=== PATIENT | female | born 1945 | race Caucasian/White ===

== ENCOUNTER → 2017-04-28 | Outpatient (CLI) | payer MEDICARE ==
--- NOTE | 2017-04-28 16:04 | RAD ---
Indication hip pain. A single AP view of the pelvis was obtained as well as targeted AP and frog leg views of the right hip. There are degenerative changes involving both hips left somewhat greater than right. There is some deformity which may be degenerative and chronic or possibly posttraumatic at the level of the symphysis. An acute bony finding is not seen. There are some modest degenerative changes in the lower lumbar spine. IMPRESSION: Degenerative changes involving both hips. Acute bony finding is not seen
== END | disposition home or self-care (01) ==
LOC: DXRAD 15:35
PROVIDERS: ATTEND Specialist
DX: M16.0 Bilateral primary osteoarthritis of hip (principal)
CPT/HCPCS: 73502

== ENCOUNTER 2017-06-27 12:16 | Emergency (ER) | payer MEDICARE ==
[~2017-06-27] VITALS: Ht 167.6 cm; Wt 72.6 kg
[2017-06-27 13:01] VITALS: BP 101/56
--- NOTE | 2017-06-27 13:15 | RAD ---
Indication: Weakness for one day. Technique: Two-view chest radiograph was obtained. No comparison is available. Findings: The lungs are clear. The cardiopulmonary silhouette is within normal limits. There is a small to medium sized hiatal hernia. There is minimal atheromatous disease in the thoracic aorta. There is no pleural effusion. The bony structures are intact. IVC filter is noted. Impression: No acute thoracic findings.
[2017-06-27 13:16] LABS: BASO # 0.1 x10^3/uL (0.0-0.2); BASO % 1 % (0-3); EOS # 0.2 x10^3/uL (0.0-0.7); EOS % 2 % (0-3); HEMATOCRIT 42.2 % (36.0-47.0); HEMOGLOBIN 14.5 g/dL (12.0-15.5); LYMPH # 1.4 x10^3/uL (1.0-4.8); LYMPH % 13 % (24-48); MEAN CORPUSCULAR HEMOGLOBIN 32 pg (25-35); MEAN CORPUSCULAR HGB CONC 34 g/dL (31-37); MEAN CORPUSCULAR VOLUME 94 fL (79-100); MONO # 0.6 x10^3/uL (0.0-1.1); MONO % 6 % (0-9); NEUT # 8.1 x10^3uL (1.8-7.7); NEUT % 78 % (31-73); PLATELET COUNT 140 x10^3/uL (140-400); RED BLOOD COUNT 4.49 x10^6/uL (3.50-5.40); RED CELL DISTRIBUTION WIDTH 13.6 % (11.5-14.5); WHITE BLOOD COUNT 10.4 x10^3/uL (4.0-11.0)
[2017-06-27 13:41] LABS: ALBUMIN 3.8 g/dL (3.4-5.0); ALBUMIN/GLOBULIN RATIO 1.5 (1.0-1.7); ALK PHOS 72 U/L (46-116); ALT (SGPT) 11 U/L (14-59); ANION GAP 7 (6-14); AST (SGOT) 20 U/L (15-37); BLOOD UREA NITROGEN 22 mg/dL (7-20); BUN/CREATININE RATIO 22 (6-20); CALCIUM 9.1 mg/dL (8.5-10.1); CARBON DIOXIDE 28 mmol/L (21-32); CHLORIDE 105 mmol/L (98-107); CREATINE KINASE 37 U/L (26-192); GFR 54.3; GLUCOSE 143 mg/dL (70-99); MAGNESIUM 2.1 mg/dL (1.8-2.4); POTASSIUM 4.7 mmol/L (3.5-5.1); SODIUM 140 mmol/L (136-145); TOTAL BILIRUBIN 0.8 mg/dL (0.2-1.0); TOTAL PROTEIN 6.4 g/dL (6.4-8.2)
[2017-06-27 14:07] LABS: BILIRUBIN,URINE NEG (NEG); CLARITY,URINE HAZY; COLOR,URINE YELLOW; GLUCOSE,URINE NEG (NEG)
[2017-06-27 14:08] LABS: BACTERIA,URINE MANY /HPF (0-FEW); NITRITE,URINE POS (NEG); SQUAMOUS EPITHELIAL CELL,UR MOD /LPF; UROBILINOGEN,URINE 0.2 mg/dL (0.2 mg/dL)
[2017-06-27 14:09] LABS: HYALINE CASTS, URINE FEW /HPF
[2017-06-27] MEDS ORDERED: CIPR250T PO (15:05)
--- NOTE | 2017-06-27 15:05 | PHYS DOC ---
Past History Past Medical History: Asthma, CAD, Dementia, SC, Seizure, Other Past Surgical History: Hysterectomy, Tonsillectomy, Other Alcohol Use: None Drug Use: None Adult General Chief Complaint Chief Complaint: WEAKNESS/GENERALIZED HPI HPI Patient is a 71-year-old female brought to the ED by her daughter with the complaint of a week or near syncopal episode. Patient lives with her daughter. She has a history of Parkinson's, dementia, seizures, and 4 cardiac stents. This morning, the patient was standing up, her daughter was combing her hair. She seemed to get weak and started leaning, she "started to go down" but the daughter held her up a family member ran and got a chair. It just seemed like her legs were giving out. She said in the chair for about 10 minutes, couldn't get up, seemed like she didn't have any strength in her legs. It was bilateral. She had a "cold sweats" during this time. After the episode, she was able to use a walker to get to the car but she was unsteady on her feet, seemed like her legs were still weak. Patient does use a walker all the time due to Parkinson's disease and balance issues. Daughter wonders whether her Parkinson's disease is getting worse. Seems like she is having more trouble with her balance. However the daughter states that she is supposed to take medication for times a day and they usually are able to remember the morning and evening doses but they have trouble and often forgets the 2 doses in the middle of the day. Patient is not diabetic. PCP Dr. Monterroso Review of Systems Review of Systems Patient is not able to contribute to review of systems due to dementia. Allergies Allergies Allergies Coded Allergies Type Severity Reaction Last Updated Verified Iodinated Contrast- Oral and IV Dye Allergy Unknown 06/27/17 Yes Penicillins Allergy Unknown 06/27/17 Yes Sulfa (Sulfonamide Antibiotics) Allergy Unknown 06/27/17 Yes cephalexin Allergy Unknown 06/27/17 Yes erythromycin base Allergy Unknown 06/27/17 Yes Physical Exam Physical Exam Constitutional: Well developed, well nourished, no acute distress, non-toxic appearance. Alert, answers most questions "I don't know", appears to be at her baseline HENT: Normocephalic, atraumatic, bilateral external ears normal, nose normal. [ ] Eyes: conjunctiva normal, no discharge. [] Neck: Normal range of motion, no stridor. [] Cardiovascular:Heart rate regular rhythm, no murmur [] Lungs & Thorax: Bilateral breath sounds clear to auscultation [] Abdomen: Bowel sounds normal, soft, no tenderness, no masses, no pulsatile masses. [] Skin: Warm, dry, no erythema, no rash. [] Extremities: No tenderness, no cyanosis, no clubbing, ROM intact, no edema. [] Neurologic: Alert, normal motor function, normal sensory function, no focal deficits noted. Bilateral upper and lower extremity strength equal and appears to be at her baseline. Current Patient Data Vital Signs Vital Signs Date Time Temp Pulse Resp B/P (MAP) Pulse Ox O2 Delivery O2 Flow Rate FiO2 06/27/17 13:01 97.8 72 20 94 Room Air Lab Results Laboratory Tests Test 06/27/17 12:57 06/27/17 13:45 White Blood Count 10.4 x10^3/uL (4.0-11.0) Red Blood Count 4.49 x10^6/uL (3.50-5.40) Hemoglobin 14.5 g/dL (12.0-15.5) Hematocrit 42.2 % (36.0-47.0) Mean Corpuscular Volume 94 fL (79-100) Mean Corpuscular Hemoglobin 32 pg (25-35) Mean Corpuscular Hemoglobin Concent 34 g/dL (31-37) Red Cell Distribution Width 13.6 % (11.5-14.5) Platelet Count 140 x10^3/uL (140-400) Neutrophils (%) (Auto) 78 % (31-73) H Lymphocytes (%) (Auto) 13 % (24-48) L Monocytes (%) (Auto) 6 % (0-9) Eosinophils (%) (Auto) 2 % (0-3) Basophils (%) (Auto) 1 % (0-3) Neutrophils # (Auto) 8.1 x10^3uL (1.8-7.7) H Lymphocytes # (Auto) 1.4 x10^3/uL (1.0-4.8) Monocytes # (Auto) 0.6 x10^3/uL (0.0-1.1) Eosinophils # (Auto) 0.2 x10^3/uL (0.0-0.7) Basophils # (Auto) 0.1 x10^3/uL (0.0-0.2) Sodium Level 140 mmol/L (136-145) Potassium Level 4.7 mmol/L (3.5-5.1) Chloride Level 105 mmol/L (98-107) Carbon Dioxide Level 28 mmol/L (21-32) Anion Gap 7 (6-14) Blood Urea Nitrogen 22 mg/dL (7-20) H Creatinine 1.0 mg/dL (0.6-1.0) Estimated GFR (Cockcroft-Gault) 54.3 BUN/Creatinine Ratio 22 (6-20) H Glucose Level 143 mg/dL (70-99) H Calcium Level 9.1 mg/dL (8.5-10.1) Magnesium Level 2.1 mg/dL (1.8-2.4) Total Bilirubin 0.8 mg/dL (0.2-1.0) Aspartate Amino Transferase (AST) 20 U/L (15-37) Alanine Aminotransferase (ALT) 11 U/L (14-59) L Alkaline Phosphatase 72 U/L (46-116) Creatine Kinase 37 U/L (26-192) Creatine Kinase MB (Mass) < 0.5 ng/mL (0.0-3.6) Creatine Kinase MB Relative Index 1.4 % (0-4) Troponin I Quantitative < 0.017 ng/mL (0-0.055) Total Protein 6.4 g/dL (6.4-8.2) Albumin 3.8 g/dL (3.4-5.0) Albumin/Globulin Ratio 1.5 (1.0-1.7) Urine Collection Type U cath Urine Color Yellow Urine Clarity Hazy Urine pH 5.5 Urine Specific [place] 1.025 Urine Protein Neg (NEG-TRACE) Urine Glucose (UA) Neg mg/dL (NEG) Urine Ketones (Stick) Trace mg/dL (NEG) Urine Blood Neg (NEG) Urine Nitrite Pos (NEG) Urine Bilirubin Neg (NEG) Urine Urobilinogen Dipstick 0.2 mg/dL (0.2 mg/dL) Urine Leukocyte Esterase Trace (NEG) Urine RBC 1-2 /HPF (0-2) Urine WBC 11-20 /HPF (0-4) Urine Squamous Epithelial Cells Mod /LPF Urine Bacteria Many /HPF (0-FEW) Urine Hyaline Casts Few /HPF Urine Mucus Slight /LPF EKG EKG 12-lead EKG read by me. Sinus rhythm. Heart rate 72. There are no acute ST or T wave changes indicative of ischemia or infarction. No STEMI. 1336 [] Radiology/Procedures Radiology/Procedures Two-view chest x-ray read by me. No acute abnormality. [] Course & Med Decision Making Course & Med Decision Making Pertinent Labs and Imaging studies reviewed. (See chart for details) 71-year-old female with Parkinson's and dementia presents with an episode described by her daughter that sounds like a near syncopal episode. It seems that she is back to normal at this time. I discussed with the daughter that we will check some tests in the ED. There is no clear-cut cause for her episode. EKG, chest x-ray, labs unremarkable, except that she does have a UTI. The urine was a straight catheter specimen. Discussed with the daughter. She is allergic to multiple antibiotics. We will treat her with Cipro. Return precautions were given. [] Dragon Disclaimer Dragon Disclaimer This chart was dictated in whole or in part using Voice Recognition software in a busy, high-work load, and often noisy Emergency Department environment. It may contain unintended and wholly unrecognized errors or omissions. Departure Departure: Impression: Primary Impression: Urinary tract infection Additional Impression: Near syncope Disposition: 01 HOME, SELF-CARE Condition: STABLE Referrals: FLAVIO MONTERROSO MD (PCP) Patient Instructions: Urinary Tract Infection, [id number] Scripts Ciprofloxacin Hcl (CIPROFLOXACIN HCL) 250 Mg Tablet 1 TAB PO BID for UTI, #14 TAB Prov: JOYCE ZARAGOZA MD 06/27/17 Problem Qualifiers JOYCE ZARAGOZA MD Jun 27, 2017 15:05
[2017-06-27] MEDS ORDERED: CIPROFLOXACIN HCL 500 MG TABLET PO ONE (15:15)
--- NOTE | 2017-06-27 17:32 | EKG ---
[address] [address] Test Date: 2017-06-27 Test Time: 13:26:17 Pat Name: CAROLINE OPAL Department: Room: Gender: F [employer]: : 1945 Requested By: JOYCE ZARAGOZA Order Number: [id number] Reading MD: Measurements Intervals [place] Rate: 72 P: 52 PA: 156 QRS: 20 QRSD: 72 T: 15 QT: 382 QTc: 420 Interpretive Statements SINUS RHYTHM NORMAL ECG RI6.01 Unconfirmed report No previous ECG available for comparison
== END 2017-06-27 15:28 | disposition home or self-care (01) ==
LOC: ER 12:16
DX: N39.0 Urinary tract infection, site not specified (principal); R55 Syncope and collapse; I25.10 Atherosclerotic heart disease of native coronary artery without angina pectoris; J45.909 Unspecified asthma, uncomplicated; I25.2 Old myocardial infarction; Z88.0 Allergy status to penicillin; Z88.2 Allergy status to sulfonamides; Z88.1 Allergy status to other antibiotic agents; Z91.041 Radiographic dye allergy status
CPT/HCPCS: 36415; 71020; 80053; 81001; 82553; 83735; 84443; 84484; 85025; 87086; 93005; 99285-25

== ENCOUNTER → 2017-07-15 | Outpatient (CLI) | payer MEDICARE ==
[~2017-07-15] MED LIST: CIPR250T PO
[2017-07-15 13:32] VITALS: BP 126/75
--- NOTE | 2017-07-15 13:33 | NUR ---
Pt ambulated on and off unit via walker with daughter. Bladder scan completed resulting in 45ml urine volume. Results faxed to Dr. Contrerasneys office, patient was unable to post void. Stated she did not have to urinate. According to daughter she urinated at doctors office to obtain urine sample. VSS.
== END | disposition home or self-care (01) ==
LOC: OPSVCOP 12:48
PROVIDERS: ATTEND Specialist
DX: G20 Parkinson's disease (principal); N39.0 Urinary tract infection, site not specified
CPT/HCPCS: 51798